=== PATIENT | male | born 1975 | race Caucasian/White ===

== ENCOUNTER 2016-09-23 17:07 | Emergency (ER) | payer OTHER ==
[~2016-09-23] VITALS: Ht 177.8 cm; Wt 83.9 kg
[2016-09-23 17:28] VITALS: BP 149/93
--- NOTE | 2016-09-23 18:55 | NUR ---
Patient ambulated to bed 3. RN evaluating patient at bedside.
--- NOTE | 2016-09-23 19:15 | NUR ---
PATIENT PRESENTS TO ED WITH C/O LAC TO LEFT MIDDLE FINGER PT DENIES N/V/D; SKIN IS PINK/WARM/DRY; AAOX4 WITH EVEN AND STEADY GAIT; LUNGS CLEAR BL; HR EVEN AND REGULAR; PT DENIES ANY FEVER, CP, SOB, OR COUGH AT THIS TIME; PATIENT STATES PAIN OF 0/10 AT THIS TIME; VSS; PATIENT POSITIONED FOR COMFORT; HOB ELEVATED; BEDRAILS UP X2; BED DOWN. ER MD MADE AWARE OF PT STATUS.
--- NOTE | 2016-09-23 19:21 | NUR ---
Dr. Pond evaluating patient at bedside.
[2016-09-23] MEDS ORDERED: LIDOCAINE 1% 500 MG/50 ML VIAL INJ ONE (19:25)
[2016-09-23] MEDS ORDERED: LIDOCAINE/EPI 1% 1:100000 20 ML VIAL INJ ONE (19:39)
[2016-09-23] MEDS ORDERED: BACITRACIN OINT 500 UNITS/GM PKT TP ONE (19:45)
--- NOTE | 2016-09-23 20:05 | NUR ---
DR LUBIN SUTURED LEFT MIDDLE FINGER. PT TOLERATED WELL.
[2016-09-23 20:30] VITALS: BP 141/94
--- NOTE | 2016-09-23 20:30 | NUR ---
Patient discharged with v/s stable. Written and verbal after care instructions given and explained. Patient verbalized understanding. Ambulatory with steady gait. All questions addressed prior to discharge. Advised to follow up with PMD.
== END 2016-09-23 20:30 | disposition home or self-care (01) ==
LOC: MED 17:07
DX: S61.213A Laceration without foreign body of left middle finger without damage to nail, initial encounter (principal); Z91.048 Other nonmedicinal substance allergy status; W26.0XXA Contact with knife, initial encounter; Y93.89 Activity, other specified; Y92.89 Other specified places as the place of occurrence of the external cause; Y99.8 Other external cause status
CPT/HCPCS: 12001; 99283; J2001

== ENCOUNTER 2018-07-21 23:47 | Emergency (ER) | payer OTHER ==
[~2018-07-21] VITALS: Ht 175.3 cm; Wt 86.2 kg
[2018-07-21 23:58] VITALS: BP 139/83
--- NOTE | 2018-07-21 23:58 | NUR ---
TO BED # 12 AMBULATORY
--- NOTE | 2018-07-22 00:10 | NUR ---
42/M BIB FOR RIGHT FOOT AND KNEE PAIN. 01/01. S/P KNEE SURGERY FRIDAY 07/14. AMBULATORY VIA CRUTCHES. INTERMITTENT PAIN RADIATING FROM CALF TO FOOD. 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 ACL + MINISCUS TEAR. RX ISONIZID, MORPHINE, AND B6. AOX4. ABLE TO VERBALIZE NEEDS. BED IN LOWEST POSITION. MD MADE AWARE. WILL CONTINUE TO MONITOR.
--- NOTE | 2018-07-22 02:19 | NUR ---
CALLED [facility] FOR ULTRASOUND RESULTS
[2018-07-22] MEDS ORDERED: HYDROcodone/APAP 5/325 MG 1 TAB TAB PO ONE (02:20)
--- NOTE | 2018-07-22 03:00 | NUR ---
Patient discharged with v/s stable. Written and verbal after care instructions given and explained. Patient alert, oriented and verbalized understanding of instructions. Ambulatory with steady gait. All questions addressed prior to discharge. ID band removed. Patient advised to follow up with PMD. Rx of XARELTO 15MG given. Patient educated on indication of medication including possible reaction and side effects. Opportunity to ask questions provided and answered.
[2018-07-22 03:02] VITALS: BP 139/83
== END 2018-07-22 03:00 | disposition home or self-care (01) ==
LOC: MED 23:47
DX: I82.441 Acute embolism and thrombosis of right tibial vein (principal); M79.661 Pain in right lower leg; Z98.890 Other specified postprocedural states; Z91.048 Other nonmedicinal substance allergy status
CPT/HCPCS: 93971; 99284; Q0092

== ENCOUNTER 2019-06-17 18:30 | Emergency (ER) | payer OTHER ==
[~2019-06-17] VITALS: Ht 177.8 cm; Wt 89.8 kg
[2019-06-17 18:35] VITALS: BP 137/97
[2019-06-17] MEDS ORDERED: DEXAMETHASONE 4 MG/ML VIAL PO ONE (20:10)
[2019-06-17] MEDS ORDERED: DEXAMETHASONE 10 MG/ML VIAL ONE ×2 (20:14→20:37)
[2019-06-17] MEDS ORDERED: DEXAMETHASONE 10 MG/ML VIAL PO ONE (20:45)
[2019-06-17 20:57] VITALS: BP 127/96
== END 2019-06-17 20:57 | disposition home or self-care (01) ==
LOC: MED 18:30
DX: J02.9 Acute pharyngitis, unspecified (principal); Z98.890 Other specified postprocedural states
CPT/HCPCS: 87081; 99283; J1100

== ENCOUNTER 2023-01-17 14:04 | Emergency (ER) | payer OTHER ==
[~2023-01-17] VITALS: Ht 177.8 cm; Wt 79.4 kg
[2023-01-17 14:15] VITALS: BP 133/87; PULSE 87; RESP 19; TEMP 97.7; O2SAT 97
[2023-01-17] MEDS ORDERED: DICYCLOMINE HCL LIQUID 20 MG, ALUMINUM HYD/MAG/SIMETHICONE 30 ML, LIDOCAINE VISCOUS 2% ... PO ONE ×3 (14:30)
[2023-01-17] MEDS ORDERED: DICYCLOMINE HCL LIQUID 10 MG/5 ML UDC ONE (14:33)
[2023-01-17] MEDS ORDERED: ALUMINUM HYD/MAG/SIMETHICONE 30 ML UDC ONE (14:33)
[2023-01-17] MEDS ORDERED: OMEP40EC24 PO (14:53)
[2023-01-17 15:02] VITALS: BP 118/77; PULSE 74; RESP 16; TEMP 98.1; O2SAT 100
== END 2023-01-17 15:02 | disposition home or self-care (01) ==
LOC: MED 14:04
DX: R07.9 Chest pain, unspecified (principal); F17.200 Nicotine dependence, unspecified, uncomplicated; Z79.899 Other long term (current) drug therapy
CPT/HCPCS: 93005; 99283